=== PATIENT | male | born 2000 | race Caucasian/White ===

== ENCOUNTER 2024-03-08 15:00 | Emergency (ER) | payer OTHER ==
[~2024-03-08] VITALS: Ht 182.9 cm; Wt 72.6 kg
[2024-03-08 15:15] VITALS: BP_SYST 124; PULSE 85; RESP 18; TEMP 98.3; O2SAT 98
[2024-03-08] MEDS: DIPHTH,PERTUSS(ACELL),TET VAC 0.5 ML VIAL (Tdap) I.M. ONE (15:41)
[2024-03-08] MEDS: LIDOCAINE 1% 10 MG/ML, 20 ML MDV INJ ONE (15:52)
[2024-03-08 18:05] VITALS: BP_SYST 124; PULSE 85; RESP 18; TEMP 98.3; O2SAT 98
== END 2024-03-08 17:50 | disposition home or self-care (01) ==
LOC: SED 15:00
DX: S61.512A Laceration without foreign body of left wrist, initial encounter (principal); Z23 Encounter for immunization; W26.8XXA Contact with other sharp object(s), not elsewhere classified, initial encounter; Y93.89 Activity, other specified; Y92.89 Other specified places as the place of occurrence of the external cause; Y99.8 Other external cause status
CPT/HCPCS: 90715; 99283; J2001